=== PATIENT | male | born 1990 | race Caucasian/White ===

== ENCOUNTER 2021-02-12 09:43 | Emergency (ER) | payer OTHER ==
[~2021-02-12] VITALS: Ht 172.7 cm; Wt 111.4 kg
[2021-02-12] MEDS ORDERED: BAMLANIVIMAB 700mg/20ml inj. 700 MG, ETESEVIMAB 700mg/20mL inj. 1,400 MG in normal sali... IV ONE (10:45)
[2021-02-12] MEDS ORDERED: dexamethasone sod phosphate 10mg/ml inj IV STA (10:49)
[2021-02-12] MEDS ORDERED: azithromycin/NS 500mg/250ml 250 ML IV ONE (10:50)
[2021-02-12] MEDS ORDERED: normal saline 1000ML IV soln IVB ONE (10:50)
[2021-02-12] MEDS ORDERED: AZIT500T PO (11:11)
[2021-02-12] MEDS ORDERED: DEXA6TAB6 PO (11:11)
[2021-02-12] MEDS ORDERED: ALBU6.7H9 INH (11:11)
[2021-02-12 13:15] VITALS: BP 129/87
== END 2021-02-12 13:44 | disposition home or self-care (01) ==
LOC: ER 09:46
DX: U07.1 COVID-19 (principal); J12.82 Pneumonia due to coronavirus disease 2019; R06.02 Shortness of breath; R53.1 Weakness; Z79.2 Long term (current) use of antibiotics; Z79.899 Other long term (current) drug therapy
CPT/HCPCS: 71045; 87635; 96365; 96375; 99291; C9803; J0456; J1100; J7030; M0245; Q0245; Q0239